=== PATIENT | male | born 1975 | race Two or more races ===

== ENCOUNTER 2017-05-30 12:05 | Emergency (ER) | payer BC ==
[2017-05-30] MEDS ORDERED: Albuterol/Ipratropium 3.0-0.5 MG/3 ML Neb Soln NEB ONE (12:29)
--- NOTE | 2017-05-30 12:30 | EDM.PDOC ---
ED HPI GENERAL MEDICAL PROBLEM - General Chief Complaint: Respiratory Problem Stated Complaint: CONGESTED Time Seen by Provider: 05/30/17 12:30 Source of Information: Reports: Patient - History of Present Illness INITIAL COMMENTS - FREE TEXT/NARRATIVE: HISTORY AND PHYSICAL: History of present illness: []Patient presents with intermittent cough for a month no fever nausea vomiting chills sweats he complains of some left lower quadrant pain which is came and went overlong. He does tend to be on the constipated side he is a meat eater predominantly what does not like vegetables he has been following with his primary care for constipation will try his stool softeners from this standpoint also diverticulitis mild case could be a consideration Denies any blood or mucus in the stool on physical exam no hernias appreciated No fever nausea vomiting chills sweats Review of systems: As per history of present illness and below otherwise all systems reviewed and negative. Past medical history: As per history of present illness and as reviewed below otherwise noncontributory. Surgical history: As per history of present illness and as reviewed below otherwise noncontributory. Social history: No reported history of drug or alcohol abuse. Family history: As per history of present illness and as reviewed below otherwise noncontributory. Physical exam: HEENT: Atraumatic, normocephalic, pupils reactive, negative for conjunctival pallor or scleral icterus, mucous membranes moist, throat clear, neck supple, nontender, trachea midline. Lungs: Clear to auscultation, breath sounds equal bilaterally, chest nontender. Heart: S1S2, regular, negative for clicks, rubs, or JVD. Abdomen: Soft, nondistended, nontender. Negative for masses or hepatosplenomegaly. Negative for costovertebral tenderness. Pelvis: Stable nontender. Genitourinary: Normal male genital exam no mass scarred lesion no hernia appreciated Rectal: Deferred. Extremities: Atraumatic, negative for cords or calf pain. Neurovascular unremarkable. Neuro: Awake, alert, oriented. Cranial nerves II through XII unremarkable. Cerebellum unremarkable. Motor and sensory unremarkable throughout. Exam nonfocal. Diagnostics: []Chest 2 views Influenza Therapeutics: []DuoNeb Impression: []Acute bronchitis History of constipation Definitive disposition and diagnosis as appropriate pending reevaluation and review of above. Left lower side Pain Score (Numeric/FACES): 1 - Related Data Allergies Allergy/AdvReac Type Severity Reaction Status Date / Time No Known Allergies Allergy Verified 05/30/17 12:22 Home Meds: Home Meds . [No Known Home Meds] 05/06/16 [History] Past Medical History - Past Health History Medical/Surgical History: Denies Medical/Surgical History Social & Family History - Family History Family Medical History: Noncontributory - Tobacco Use Smoking Status *Q: Never Smoker Second Hand Smoke Exposure: No - Caffeine Use Caffeine Use: Reports: Coffee - Alcohol Use Days Per Week of Alcohol Use: 7 Number of Drinks Per Day: 1 Total Drinks Per Week: 7 - Recreational Drug Use Recreational Drug Use: No ED ROS GENERAL - Review of Systems Review Of Systems: ROS reveals no pertinent complaints other than HPI. ED EXAM, GENERAL - Physical Exam Exam: See Below Course - Vital Signs Last Recorded V/S: Last Vital Signs Temp 97.8 F 05/30/17 12:23 Pulse 88 05/30/17 12:23 Resp 16 05/30/17 12:23 BP 145/91 H 05/30/17 12:23 Pulse Ox 95 05/30/17 12:23 - Orders/Labs/Meds Orders: Active Orders 24 hr Category Date Time Status RT Aerosol Therapy [RC] ASDIRECTED Care 05/30/17 12:30 Active Chest 2V [CR] Stat Exams 05/30/17 12:29 Taken Meds: Medications Discontinued Medications Generic Name Dose Route Start Last Admin Trade Name Freq PRN Reason Stop Dose Admin Albuterol/Ipratropium 3 ml 05/30/17 12:29 05/30/17 12:49 Duoneb 3.0-0.5 Mg/3 Ml NEB 05/30/17 12:30 3 ml ONETIME ONE Administration Departure - Departure Time of Disposition: 13:42 Disposition: Home, Self-Care 01 Condition: Good Clinical Impression: Bronchitis, Constipation - Discharge Information Referrals: Indira Goddard DO [Primary Care Provider] - Forms: ED Department Discharge Additional Instructions: Medications as prescribed Return if symptoms persist or worsen Follow-up with primary care in 2 weeks sooner as needed The following information is given to patients seen in the emergency department who are being discharged to home. This information is to outline your options for follow-up care. We provide all patients seen in our emergency department with a follow-up referral. The need for follow-up, as well as the timing and circumstances, are variable depending upon the specifics of your emergency department visit. If you don't have a primary care physician on staff, we will provide you with a referral. We always advise you to contact your personal physician following an emergency department visit to inform them of the circumstance of the visit and for follow-up with them and/or the need for any referrals to a consulting specialist. The emergency department will also refer you to a specialist when appropriate. This referral assures that you have the opportunity for follow-up care with a specialist. All of these measure are taken in an effort to provide you with optimal care, which includes your follow-up. Under all circumstances we always encourage you to contact your private physician who remains a resource for coordinating your care. When calling for follow-up care, please make the office aware that this follow-up is from your recent emergency room visit. If for any reason you are refused follow-up, please contact the [facility] emergency department at and asked to speak to the emergency department charge nurse. - My Orders Last 24 Hours: My Active Orders 05/30/17 12:29 Chest 2V [CR] Stat 05/30/17 12:30 RT Aerosol Therapy [RC] ASDIRECTED - Assessment/Plan Last 24 Hours: My Active Orders 05/30/17 12:29 Chest 2V [CR] Stat 05/30/17 12:30 RT Aerosol Therapy [RC] ASDIRECTED
[2017-05-30 13:49] VITALS: BP 144/91
--- NOTE | 2017-06-01 11:32 | CR ---
EXAM DATE: 05/30/17 PATIENT'S AGE: 42 Patient: THA CANTOR Facility: [place], [place] Site . Site : 1975 Study: XRay Chest [id number] 1:18:17 PM Ordering Physician: Jason Evangelista Final Report: CHEST 2 VIEWS INDICATION: Cough. Chest pain. Shortness of breath. IMPRESSION: Normal heart size and vascular pattern. Lungs are clear. No pneumothorax or pleural abnormality. Dictated by Bay Carmona MD @ May 30 2017 1:24PM (Electronic Signature) Report Signed by Proxy. [facility]IT[facility]
== END 2017-05-30 13:53 | disposition home or self-care (01) ==
LOC: MW.ED 12:05
DX: J20.9 Acute bronchitis, unspecified (principal); K59.00 Constipation, unspecified
CPT/HCPCS: 71020; 71020-26; 87804; 94640; 99284; 99284-25

== ENCOUNTER 2017-10-18 14:11 | Emergency (ER) | payer BC ==
[2017-10-18 14:28] VITALS: BP 148/63
--- NOTE | 2017-10-18 14:49 | EDM.PDOC ---
ED HPI GENERAL MEDICAL PROBLEM - General Chief Complaint: Upper Extremity Injury/Pain Stated Complaint: R WRIST PAIN Time Seen by Provider: 10/18/17 14:13 Source of Information: Reports: Patient History Limitations: Reports: No Limitations - History of Present Illness INITIAL COMMENTS - FREE TEXT/NARRATIVE: History of present illness: []Patient fell on outstretched arms yesterday hurting his right wrist. Patient has no numbness or tingling he can move his fingers as pain is mostly on the ulnar side. Mild swelling and pain continued this morning. Review of systems: As per history of present illness and below otherwise all systems reviewed and negative. Past medical history: As per history of present illness and as reviewed below otherwise noncontributory. Surgical history: As per history of present illness and as reviewed below otherwise noncontributory. Social history: No reported history of drug or alcohol abuse. Family history: As per history of present illness and as reviewed below otherwise noncontributory. Physical exam: General: Well developed, well nourished in NAD HEENT: Atraumatic, normocephalic, pupils reactive, negative for conjunctival pallor or scleral icterus, mucous membranes moist, throat clear, neck supple, nontender, trachea midline. Lungs: Clear to auscultation, breath sounds equal bilaterally, chest nontender. Heart: S1S2, regular, negative for clicks, rubs, or JVD. Abdomen: Soft, nondistended, nontender. Negative for masses or hepatosplenomegaly. Negative for costovertebral tenderness. Pelvis: Stable nontender. Genitourinary: Deferred. Rectal: Deferred. Extremities: Right wrist with mild swelling tenderness over the ulnar area to palpation moves finger sensations intact, negative for cords or calf pain. Neurovascular unremarkable. Neuro: Awake, alert, oriented. Cranial nerves II through XII unremarkable. Cerebellum unremarkable. Motor and sensory unremarkable throughout. Exam nonfocal. Diagnostics: []X-ray right wrist negative for fracture Therapeutics: []Splint Impression: []Right wrist sprain Plan: []Ice, elevate, Motrin for pain Definitive disposition and diagnosis as appropriate pending reevaluation and review of above. Right Wrist Pain Score (Numeric/FACES): 8 - Related Data Allergies Allergy/AdvReac Type Severity Reaction Status Date / Time No Known Allergies Allergy Verified 10/18/17 14:28 Home Meds: Home Meds . [No Known Home Meds] 05/06/16 [History] Past Medical History - Past Health History Medical/Surgical History: Denies Medical/Surgical History - Infectious Disease History Infectious Disease History: Reports: Chicken Pox Social & Family History - Family History Family Medical History: Noncontributory - Tobacco Use Smoking Status *Q: Never Smoker Second Hand Smoke Exposure: No - Caffeine Use Caffeine Use: Reports: Coffee - Alcohol Use Days Per Week of Alcohol Use: 7 Number of Drinks Per Day: 1 Total Drinks Per Week: 7 - Recreational Drug Use Recreational Drug Use: No Review of Systems - Review of Systems Review Of Systems: See Below (See history of present illness) ED EXAM, GENERAL - Physical Exam Exam: See Below (See history of present illness) Course - Vital Signs Last Recorded V/S: Last Vital Signs Temp 97.9 F 10/18/17 14:25 Pulse 74 10/18/17 14:25 Resp 18 10/18/17 14:25 BP 148/63 H 10/18/17 14:25 Pulse Ox 99 10/18/17 14:25 - Orders/Labs/Meds Orders: Active Orders 24 hr Category Date Time Status Wrist 2V Rt [CR] Stat Exams 10/18/17 14:13 Taken Departure - Departure Time of Disposition: 15:06 Disposition: Home, Self-Care 01 Condition: Good Clinical Impression: Right wrist sprain Qualifiers: Encounter type: initial encounter Qualified Code(s): S63.501A - Unspecified sprain of right wrist, initial encounter - Discharge Information Referrals: Indira Goddard DO [Primary Care Provider] - Forms: ED Department Discharge Additional Instructions: The following information is given to patients seen in the emergency department who are being discharged to home. This information is to outline your options for follow-up care. We provide all patients seen in our emergency department with a follow-up referral. The need for follow-up, as well as the timing and circumstances, are variable depending upon the specifics of your emergency department visit. If you don't have a primary care physician on staff, we will provide you with a referral. We always advise you to contact your personal physician following an emergency department visit to inform them of the circumstance of the visit and for follow-up with them and/or the need for any referrals to a consulting specialist. The emergency department will also refer you to a specialist when appropriate. This referral assures that you have the opportunity for follow-up care with a specialist. All of these measure are taken in an effort to provide you with optimal care, which includes your follow-up. Under all circumstances we always encourage you to contact your private physician who remains a resource for coordinating your care. When calling for follow-up care, please make the office aware that this follow-up is from your recent emergency room visit. If for any reason you are refused follow-up, please contact the [facility] Emergency Department at and asked to speak to the emergency department charge nurse. Where splint for comfort, ice, elevate, Motrin for pain follow-up with primary care physician for a ration if symptoms continue [facility] [address] [place] [id number] - My Orders Last 24 Hours: My Active Orders 10/18/17 14:13 Wrist 2V Rt [CR] Stat - Assessment/Plan Last 24 Hours: My Active Orders 10/18/17 14:13 Wrist 2V Rt [CR] Stat
--- NOTE | 2017-10-19 14:30 | CR ---
EXAM DATE: 10/18/17 PATIENT'S AGE: 42 Patient: THA CANTOR Facility: [place], [place] Site . Site : 1975 Study: XRay Extremity Right [id number]/8/[id number] 2:43:34 PM Ordering Physician: Giovanny Maier Final Report: INDICATION: Fell on ice yesterday, wrist pain TECHNIQUE: Wrist radiograph 2 views right COMPARISON: None FINDINGS: Bones: No acute fractures or aggressive bone lesions are identified. Joints: The radiocarpal, carpal, and carpometacarpal joints are unremarkable in appearance. Soft tissues: Unremarkable. No radiopaque foreign bodies are seen. IMPRESSION: 1. No acute osseous injuries or abnormalities are noted. Dictated by: Zelalem Han MD @ 10/18/2017 15:03:18 (Electronic Signature) Report Signed by Proxy. [facility]IR[facility]
== END 2017-10-18 15:29 | disposition home or self-care (01) ==
LOC: MW.ED 14:11
DX: S63.501A Unspecified sprain of right wrist, initial encounter (principal); W19.XXXA Unspecified fall, initial encounter
CPT/HCPCS: 73100-26-RT; 73100-RT; 99283

== ENCOUNTER 2022-10-05 13:16 | Emergency (ER) | payer SELFPAY ==
[2022-10-05 15:13] VITALS: BP 101/63; PULSE 94
== END 2022-10-05 15:14 | disposition home or self-care (01) ==
LOC: MW.ED 13:16
DX: R07.81 Pleurodynia (principal); I10 Essential (primary) hypertension; Z86.16 Personal history of COVID-19
CPT/HCPCS: 71046; 71046-26; 99283; 99284